=== PATIENT | female | born 1990 | race Two or more races ===

== ENCOUNTER → 2017-11-15 | Outpatient (CLI) | payer OTHER ==
--- NOTE | 2017-11-15 16:00 | RAD ---
History: Lateral right foot pain beginning 3 weeks ago after running. Comparison: None. Findings: AP, lateral, and oblique views of the right foot. Mild hallux valgus is seen. No acute fracture or dislocation is identified. No focal soft tissue swelling is identified. Impression: No acute osseous abnormality identified. Electronically signed by: Aniket Bee MD (11/15/2017 3:56 PM) [facility]
== END | disposition home or self-care (01) ==
LOC: RAD 12:02
PROVIDERS: ATTEND Podiatrist
DX: M20.11 Hallux valgus (acquired), right foot (principal)
CPT/HCPCS: 73630